=== PATIENT | female | born 1990 | race Caucasian/White ===

== ENCOUNTER → 2020-04-30 15:41 | Outpatient (CLI) | payer BC, SELFPAY ==
--- NOTE | ~2020-04-30 | US_ITS ---
EXAMINATION: US thyroid EXAM DATE: 04/30/2020 16:01 INDICATION: Thyroid nodule. Had FNA 10 years ago. Adry's. Hypothyroidism. TECHNIQUE: Multiple grayscale and Doppler images of the thyroid were obtained (by a technologist who performed the scan) and subsequently reviewed. Individual nodules and recommendations may be reporte d in accordance with TI-RADS system as designated by the 2017 ACR White Paper TI-RADS committee. The re is no prior study for comparison. FINDINGS: The right thyroid lobe measures 6.0 x 1.4 x 1.4 cm, has heterogeneous echogenicity and generalized hy pervascularity. The left thyroid lobe has similar appearance, measuring 5.5 x 1.5 x 1.7 cm. The isthm us is mildly thickened. Largest discrete nodule identified is in the midpole right thyroid lobe measu ring 5 x 9 mm, not likely clinically significant. IMPRESSION: Thyromegaly, small right lobe nodule not likely clinically significant. Reviewed, dictated and finalized at location A. IFIED NURSE IMPRESSION: Thyromegaly, small right lobe nodule not likely clinically signific ant.
== END ==
PROVIDERS: PCP Physician Assistant; Visit Provider Nurse Practitioner Family
DX: E04.1 Nontoxic single thyroid nodule (principal)
CPT/HCPCS: 76536

== ENCOUNTER 2022-05-25 08:12 | Emergency (ER) | payer BC, SELFPAY ==
[2022-05-25 08:21] VITALS: BP 109/66; PULSE 95; RESP 14; TEMP 36.6; O2SAT 100
--- NOTE | 2022-05-25 08:37 | ED.URI ---
HPI - URI/Sore Throat General Chief Complaint: Upper Respiratory Infection Stated Complaint: Sore Throat Time Seen by Provider: 05/25/22 08:35 Source: patient, RN notes reviewed and old records reviewed Mode of arrival: ambulatory Limitations: no limitations History of Present Illness HPI Narrative: 31-year-old female who presents [facility] complaints of sore throat since yesterday with some body aches and chills denies any known fever. Patient reports that she has been taking some Tylenol for her symptoms with last dose at 0600 this morning. Patient states that daughter is presently being treated for strep pharyngitis.Patient denies any nausea,vomiting or diarrhea. MD elicited complaint: sore throat Onset (ago): day(s) (day 2 of symptoms) Pain scale (0-10): 6 Able to tolerate fluids by mouth: Yes Exacerbating factors: swallowing Treatments prior to arrival: acetaminophen Related Data Allergies Allergy/AdvReac Type Severity Reaction Status Date / Time ciprofloxacin Allergy Unknown Pruritic Verified 05/25/22 08:25 rash Review of Systems Review of Systems: CONSTITUTIONAL: Reports malaise, chills, sweats, or fever. EYES: Denies visual changes, redness, or discharge. ENT: Reports no rhinorrhea, congestion, sinus pain, otalgia positive for sore throat. CARDIOVASCULAR: Denies chest pain, palpitations, or edema. RESPIRATORY: Reports no cough.? Denies dyspnea. GASTROINTESTINAL: Denies abdominal pain, nausea, vomiting, diarrhea SKIN: Denies rash or itching. MUSCULOSKELETAL: Denies myalgia. NEUROLOGIC: Denies headache. All systems reviewed & are unremarkable except as noted in HPI and below PMFSH Past Medical History Medical History (Updated 05/25/22 @ 08:48 by Yesenia Summers NP) Acute pain of left knee IT band syndrome Patellar tendonitis of left knee Surgical History Surgical History (Updated 05/25/22 @ 08:46 by Yesenia Summers NP) Previous section x2 Family History Family History Other Family history of malignant neoplasm Social History Social History Smoking status: Never smoker Alcohol intake: never Comments At time of signature, agree with nursing past medical, surgical, social and family history. There is no relevant family history pertinent to the presenting complaint Exam Narrative: GENERAL: Well-appearing, well-nourished, and in no acute distress. HEAD: Normocephalic EYES: PERRLA, conjunctivae clear ENT: Nares clear, turbinates edematous and erythematous, clear discharge. Mucous membranes moist. TM pearly melo with dull light reflex bilaterally; no tragal tenderness. Oropharynx erythematous without lesions. Tonsils red enlarged and without exudate, no drooling, no hoarseness, no trismus, uvula midline. NECK: Supple. lymphadenopathy CHEST: Clear to auscultation, breath sounds equal. No wheezing, rhonchi, rales, or stridor. No respiratory distress, speaks in full sentences. no cough noted SAO2 100% on room air HEART: Regular rate and rhythm. No murmur heard. SKIN: Warm, dry, no rash. NEURO: Alert and oriented x3. PSYCH: Normal mood and affect Course Course Emergency Course: Patient is aware of diagnosis, understands and agrees to treatment plan.? Anticipatory guidance given.? Patient agrees to follow-up as directed and is aware of reasons to seek care at the emergency department. Portions of this record may have been created with voice recognition software Level of Care: [facility] Visit Vital Signs Vital signs: Vital Signs Temperature 36.6 C 05/25/22 08:21 Pulse Rate 95 05/25/22 08:21 Respiratory Rate 14 05/25/22 08:21 Blood Pressure 109/66 05/25/22 08:21 Pulse Oximetry 100 05/25/22 08:21 Oxygen Delivery Room Air 05/25/22 08:21 Temperature 36.6 C 05/25/22 08:21 Pulse Rate 95 05/25/22 08:21
== END 2022-05-25 08:50 | disposition home or self-care (01) ==
PROVIDERS: Emergency Provider Registered Nurse; PCP Physician Assistant
DX: J02.0 Streptococcal pharyngitis (principal)
CPT/HCPCS: 87880; 99213; G0463

== ENCOUNTER 2022-11-22 15:27 | Emergency (ER) | payer BC, SELFPAY ==
--- NOTE | ~2022-11-22 | CT_ITS ---
EXAMINATION: CT abdomen pelvis w con INDICATION: Right lower quadrant pain TECHNIQUE: Computed tomographic images of the abdomen and pelvis were obtained after the administrati on of 100 cc of Omnipaque 350 intravenous contrast. The dose-length product (DLP) was 552.81 mGy-cm. Automated exposure control and iterative reconstruction technique were employed. COMPARISON: None available FINDINGS: The lung bases are clear. The heart size is normal. The liver, spleen, pancreas, gallbladde r, and adrenal glands are normal. There is mild right hydronephrosis and hydroureter. There appears t o be a 2 mm stone of the distal right ureter. The left kidney is unremarkable. No pathologically enla rged abdominal or pelvic lymph nodes are identified. No free intraperitoneal gas or evidence of bowel obstruction. The appendix is normal. An IUD is present in expected position. There are bilateral occ lusion devices in the fallopian tubes. IMPRESSION: 1. Mild right hydroureteronephrosis with probable 2 mm stone of the distal right ureter. Reviewed, dictated and finalized at location F. IMPRESSION: 1. Mild right hydroureteronephrosis with probable 2 mm stone of the distal righ t ureter.
[2022-11-22 15:49] VITALS: BP 106/76; PULSE 77; RESP 16; TEMP 37.2; O2SAT 100
[2022-11-22 16:38] LABS: Basophils Absolute Auto 0.1 K/mm3 (0.0-0.1); Basophils Percent Auto 0.6 % (0.2-1.2); Eosinophils Absolute Auto 0.2 K/mm3 (0-0.3); Eosinophils Percent Auto 1.9 % (0-4.4); Hematocrit 38.3 % (37.0-47.0); Hemoglobin 12.6 g/dL (12.0-15.0); Immature Granulocyte Absolute 0.03 K/mm3 (0.00-0.031); Immature Granulocyte Percent A 0.3 % (0-0.5); Lymphocytes Absolute Auto 2.36 K/mm3 (0.9-3.2); Lymphocytes Percent Auto 26.8 % (18.3-44.2); Mean Corpuscular HGB Conc 32.9 g/dl (32-36); Mean Corpuscular Hemoglobin 29.1 pg (26-34); Mean Corpuscular Volume 88.5 fl (80-100); Mean Platelet Volume 10.2 fl (7.4-10.4); Monocytes Absolute Auto 0.7 K/mm3 (0.1-0.6); Monocytes Percent Auto 7.4 % (2.6-8.5); Neutrophils Absolute Auto 5.6 K/mm3 (1.3-6.7); Platelet Count Result 212 k/mm3 (150-375); Red Blood Count 4.33 M/mm3 (4.2-5.4); Red Cell Distribution Width 12.5 % (11.5-14.5); White Blood Count 8.8 K/mm3 (4.5-10.0)
[2022-11-22 16:42] LABS: Appearance Urine Clear (Clear); Bilirubin Urine Negative (Negative); Blood Urine Negative (Negative); Color Urine Yellow (Yellow); Glucose Urine UA Negative (Negative); Ketones Urine Negative (Negative); Leukocyte Esterase Ur Negative LEU/UL (Negative); Nitrate Urine Negative (Negative); Protein Urine Negative (Negative); Specific Grav Ur 1.009 (1.001-1.035); Urobilinogen Urine 0.2 mg/dL (<2.0)
[2022-11-22 16:47] LABS: Add Urine Microscopic? NO
[2022-11-22 16:50] LABS: Alanine Aminotransferase 17 U/L (6-35); Albumin Level 4.6 g/dL (3.5-5.1); Alkaline Phosphatase 63 U/L (38-126); Anion Gap 5 mmol/L (8-16); Aspartate Amino Transferase 24 U/L (14-36); Bilirubin,Total 0.6 mg/dL (0.2-1.3); Blood Urea Nitrogen 16 mg/dL (7-17); Calcium 9.2 mg/dL (8.4-10.2); Carbon Dioxide 29 mmol/L (22-30); Chloride 103 mmol/L (98-107); Estimated CRCL calculation 102 ml/min; Estimated Glomerular Filt Rate > 60; Glucose 90 mg/dL (65-110); Lipase 129 U/L (23-300); Potassium 3.8 mmol/L (3.4-5.0); Sodium 137 mmol/L (137-145)
--- NOTE | 2022-11-22 17:28 | ED.ABDPAIN ---
HPI - Abdominal Pain General Chief Complaint: Abdominal Pain Stated Complaint: abdominal pain Time Seen by Provider: 11/22/22 16:48 History of Present Illness HPI narrative: 32-year-old female, LMP unknown (IUD in place), reports for evaluation for intermittent right lower quadrant abdominal pain x2 weeks, worsening today. Patient states for the past 2 weeks she has had intermittent right lower quadrant abdominal pain that she describes as a spasm . States today the pain is constant and dull in her right lower quadrant and now radiating to the back. She states she had some episodes of nausea last week and a few episodes in the morning this week, but is not nauseous now. She denies fever, vomiting, diarrhea, melena or hematochezia, dysuria or hematuria, vaginal discharge, vaginal bleeding, concern for STDs. She does have her appendix. Related Data Allergies Allergy/AdvReac Type Severity Reaction Status Date / Time ciprofloxacin Allergy Unknown Pruritic Verified 05/25/22 08:25 rash Review of Systems Review of Systems: CONSTITUTIONAL: Denies fever, chills EYES: Denies visual changes, redness, or discharge. ENT: Denies rhinorrhea, congestion, sore throat, or otalgia. CARDIOVASCULAR: Denies chest pain, palpitations, or edema. RESPIRATORY: Denies cough or dyspnea. GASTROINTESTINAL: See HPI GENITOURINARY: Denies dysuria or hematuria. SKIN: Denies rash or itching. MUSCULOSKELETAL: See HPI NEUROLOGIC: Denies headache, numbness, dizziness, or weakness. PSYCHIATRIC: Denies anxiety or depression. [facility] Past Medical History Medical History Acute pain of left knee IT band syndrome Patellar tendonitis of left knee Surgical History Surgical History Previous section x2 Family History Family History Other Family history of malignant neoplasm Social History Social History Smoking status: Never smoker Alcohol intake: never Exam Narrative: GENERAL: Well-appearing, in no acute distress. Patient resting comfortably in exam bed. She is pleasant and conversational. HEAD: Normocephalic EYES: PERRLA ENT: Nares clear. Mucous membranes moist. Oropharynx without tonsillar hypertrophy exudate or other lesions. NECK: Supple. CHEST: No respiratory distress. Clear to auscultation, no adventitious breath sounds. HEART: Regular rate and rhythm. No murmur heard. Normal peripheral pulses. ABDOMEN: Normal active bowel sounds. Abdomen soft with mild tenderness in the right lower quadrant. No guarding, rebound or rigidity. No overlying skin changes. No CVA tenderness. EXTREMITIES: Normal range of motion. No edema. SKIN: Warm, dry, no rash. NEURO: No focal deficits. Alert and oriented x3. PSYCH: Normal mood and affect. Course Course Emergency Course: I offered pain medications, however patient declined. Vital Signs Vital signs: Vital Signs Temperature 99.0 F 11/22/22 15:49 Pulse Rate 77 11/22/22 15:49 Respiratory Rate 16 11/22/22 15:49 Blood Pressure 106/76 11/22/22 15:49 Pulse Oximetry 100 11/22/22 15:49 Oxygen Delivery Room Air 11/22/22 15:49 Temperature 99.0 F 11/22/22 15:49 Pulse Rate 72 11/22/22 18:30 Respiratory Rate 16 11/22/22 18:30 Blood Pressure 103/69 11/22/22 18:30 Pulse Oximetry 100 11/22/22 18:30 Oxygen Delivery Room Air 11/22/22 15:49 MDM - Abdominal Pain MDM Narrative Medical decision making narrative: 32-year-old female reports for evaluation for right lower quadrant abdominal pain x2 weeks. See HPI for further history. Vitals are stable and patient is well-appearing on exam. Her abdomen is soft with mild tenderness in the right lower quadrant. Labs significant for unremarkable CBC and CMP. Unremarkabl
[2022-11-22 17:36] VITALS: BP 109/75; PULSE 71; RESP 18; O2SAT 100
[2022-11-22] MEDS: SODIUM CHLORIDE 0.9% IV 1,000 ML 999 ML IV CONT (17:36)
[2022-11-22 18:00] VITALS: BP 106/83; PULSE 82; RESP 20; O2SAT 100
[2022-11-22 18:30] VITALS: BP 103/69; PULSE 72; RESP 16; O2SAT 100
[2022-11-22] MEDS: KETOROLAC 30 MG/ML VIAL (*BKC) IV PUSH (19:30)
[2022-11-22 20:24] VITALS: BP 114/72; PULSE 78; RESP 15; O2SAT 100
== END 2022-11-22 20:45 | disposition home or self-care (01) ==
PROVIDERS: Emergency Medicine; Emergency Provider Physician Assistant; PCP Physician Assistant
DX: N13.2 Hydronephrosis with renal and ureteral calculous obstruction (principal); Z97.5 Presence of (intrauterine) contraceptive device
CPT/HCPCS: 36415; 74177; 80053; 81003; 81025; 83690; 85025; 96361; 96374; 99284; J1885; J7030; Q9967

== ENCOUNTER 2022-11-29 14:46 | Outpatient (CLI) | payer BC, SELFPAY ==
--- NOTE | ~2022-11-29 | XR_ITS ---
XR abdomen/kub 1V DATE: 11/29/2022 15:08 INDICATION: Kidney and ureteral calculus TECHNIQUE: AP projection, 2 views COMPARISON: 11/22/2022 CT abdomen pelvis with IV contrast material FINDINGS: No urinary tract calcification is noted on the current examination. Bilateral fallopian tube inserts. IUD. No evidence of bowel obstruction. The psoas shadows are intact. No visceromegaly is noted. Included s keletal structures are unremarkable. IMPRESSION: Bilateral fallopian tube inserts an IUD No apparent urinary tract calcification Reviewed, dictated and finalized at Location A. Reviewed, dictated and finalized at location A.
== END 2022-11-29 14:47 | disposition home or self-care (01) ==
PROVIDERS: PCP Physician Assistant; Visit Provider Physician Assistant
DX: N20.2 Calculus of kidney with calculus of ureter (principal)
CPT/HCPCS: 74018